=== PATIENT | male | born 1985 | race Caucasian/White ===

== ENCOUNTER 2021-08-14 21:46 | Inpatient (IN) | payer BC, SELFPAY ==
[2021-08-14 22:06] VITALS: BP 134/84; PULSE 78; RESP 16; TEMP 36.7; O2SAT 98; BMI 31.4
[2021-08-14 22:55] VITALS: RESP 18; O2SAT 98
--- NOTE | 2021-08-14 22:56 | CRLHL7_ITS ---
For Patients: As a result of the Century Cures Act, medical imaging exams and procedure reports are released immediately into your electronic medical record. You may view this report before your referring provider. If you have questions, please contact your health care provider. INDICATION: Severe rectal pelvic pain and swelling TECHNIQUE: CT pelvis with i.v. contrast. Coronal and sagittal reformats were obtained. CONTRAST: 100 mL Omnipaque 350 COMPARISON: None FINDINGS: Bone: No acute fractures or aggressive bone lesions are identified. There is a bone present in right sacral ala that measures 7 mm. Joint: The hip joint is unremarkable. No significant hip effusion is seen. The visualized sacroiliac joints are unremarkable in appearance. The pubic symphysis is normal in appearance. Soft tissue: There is a fluid collection measuring 2 x 1 x 2.8 cm posterior to the anal canal that likely represents a perianal abscess. IMPRESSION: 1. There is a fluid collection measuring 2 x 1 x 2.8 cm posterior to the anal canal that likely represents a perianal abscess. Dictated by Heri Gross MD @ 08/14/2021 11:49:58 PM Please note that all CT scans at this facility use dose modulation, iterative reconstruction, and/or weight-based dosing when appropriate to reduce radiation dose to as low as reasonably achievable. Dictated by: Heri Gross MD @ 08/14/2021 23:50:03 (Electronically Signed)
[2021-08-14 23:00] VITALS: BP 118/68; PULSE 70; RESP 16; TEMP 36.7; O2SAT 98
[2021-08-14] MEDS: 0.9 % SODIUM CHLORIDE 1000 ml 1,000 ML IV (23:00)
[2021-08-14] MEDS: HYDROmorphone 0.5 mg/0.5 ml inj 1.5 MG IVP (23:15)
[2021-08-14] MEDS: KETOROLAC 15 MG/ML inj IVP (23:19)
[2021-08-14 23:35] LABS: Basophils Percent Auto 0.2 % (0.0-3.0); Eosinophils Percent Auto 1.1 % (0.0-7.0); Hemoglobin* 15.5 gm/dL (13.5-17.5); Immature Granulocytes Abs Auto 0.07 K/uL (0.00-0.30); Lymphocytes Percent Auto 26.4 % (20-44); Mean Corpuscular HGB Conc 35 gm/dL (32-36); Mean Corpuscular Hemoglobin 30 pg (26-34); Mean Corpuscular Volume 85 fL (80-100); Monocytes Percent Auto 8.1 % (0.0-11.0); Neutrophils Percent Auto 63.6 % (42.0-72.0); Platelet Count* 345 K/uL (140-440); RDW Coefficient of Variation % 11.2 % (11.5-15.5)
[2021-08-14 23:41] LABS: Chloride* 104 mmol/L (96-114)
[2021-08-14 23:42] LABS: Potassium* 3.6 mmol/L (3.6-5.1); Sodium* 137 mmol/L (135-149)
[2021-08-14 23:44] LABS: Creatinine* 0.7 mg/dL (0.5-1.5); Est. Creatinine Clearance* 152.39; Estimated Glomerular Filt Rate 120.95
[2021-08-14 23:45] LABS: Blood Urea Nitrogen* 8 mg/dL (5-24); Carbon Dioxide* 25 mmol/L (20-32); Glucose* 111 mg/dL (60-115)
[2021-08-14 23:48] LABS: C Reactive Protein* 1.9 mg/dL (0.5-1.0)
[2021-08-14 23:48] LABS: Slide Review Reflex No
[2021-08-15] VITALS (27 sets, daily range): BP systolic 82–128; BP diastolic 60–79; PULSE 63–85; RESP 16–20; TEMP 36.3–37; O2SAT 94–98; BMI 31.7
--- NOTE | 2021-08-15 00:26 | ED_ITS ---
HPI - Abdominal Pain General Chief Complaint: Unspecified Complaint, Adult Stated Complaint: Pain in butt Covid+ since 08/02/21 Time Seen by Provider: 08/14/21 22:05 History of Present Illness HPI narrative: 36-year-old man presenting to the emergency department with concern of 1 week i ncreasing rectal area pain. Seems to be radiating now up into tailbone area. He is noted lump in the perianal area he says. Was seen earlier today in Urgent Care and initiated on clindamycin apparently for presumed rectal or perirectal abscess. It is unclear to me what was noted on exam. He denies particular pain with bowel movement but after the having bowel movement with muscular flexing in the area causes severe pain. He does not have dysuria but again at the end as he contracts muscles then he begins to have pain. He feels a sense of extreme pressure in the constant pushing or needs to have a bowel movement as well. He is not constipated he says. Complicated by a complex regional pain syndrome taking 10-20 mg of oxycodone every 4-6 hours. This however affects his left upper chest Area. He has not had any fever. No described rectal drainage or hematochezia. Extremely uncomfortable to sit PAST HISTORY:? Includes is complex regional pain syndrome, migraines, GERD, hypertriglyceridemia, some chest wall pain. ? FAMILY HISTORY:? Migraines, pancreatic cancer in grandmother. ? SOCIAL HISTORY:? He is a former smoker Though noted with triage update smoking again?? Related Data Home Medications Medication Instructions Recorded Confirmed oxycodone 10 mg tablet 10 mg PO BID PRN 08/14/21 08/14/21 pantoprazole 40 mg tablet,delayed 40 mg PO QDAY 08/14/21 08/14/21 release Previous Rx's Medication Instructions Recorded clindamycin HCl 300 mg capsule 300 mg PO TID 10 Days #30 cap 08/14/21 Allergies Allergy/AdvReac Type Severity Reaction Status Date / Time hydromorphone [From Dilaudid] Allergy Intermediate Hives Verified 08/15/21 01:56 Review of Systems Status of ROS Reports: 6 or more systems reviewed and unremarkable except as noted in History and below [facility] Medical History GERD (gastroesophageal reflux disease) Pain Surgical History No significant past surgical history Social History Highest level of school completed/degree received: Associate degree: occupational, technical, vocational program Smoking Status: Current every day smoker What tobacco products do you use: cigarettes Years smoked: 15 Do you use any of these nicotine containing products: None Second hand tobacco smoke exposure: Yes How often do you have a drink containing alcohol: never How often do you have six or more drinks on one occasion: Never AUDIT-C Alcohol total score: 0 Non-prescribed substance use: denies use Caffeine: Yes (2 Sodas Daily) service: No Exam Narrative: Exam Narrative: Mr. Monsalve is pleasant. Breathing easily. Clearly uncomfortable though. 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 Skin is warm and dry. Extremities are Without edema. Well perfused peripherally. lungs again breathing easily. Appear to be clear. CV RRR oropharynx unremarkable, moist. Abdomen is soft and nontender. Perineal/anal exam he is rather reticent to have this exam. I do not see any inflammatory changes around the anus. Insertion of finger gently however does result in a good deal of pain. Only able to place finger in anus about half an inch and I feel I need to abort this Due to tension and discomfort. Feels particularly full in 5 o'clock position. but a can say I appreciate any defect otherwise. Const: Vital Signs, click to edit/add: Vital Signs - 24 hr 08/14/21 22:06 08/14/21 22:55 08/14/21 23:00 Temperature 98.0 F 98.0 F Pulse Rate [Left P ulse Oximeter] 78 70 Respiratory Rate 16 16 Respiratory Rate [ Rectum] 18 Blood Pressure [Ri ght Upper Arm] 134/84 118/68 Pulse Oximetry 98 98 08/15/21 01:20 Temperature 98.0 F Pulse Rate [Left P ulse Oximeter] 78 Respiratory Rate 16 Respiratory Rate [ Rectum] Blood Pressure [Ri ght Upper Arm] 124/70 Pulse Oximetry 98 Documenting provider has reviewed patient's vital signs: yes Course Course Hospital Course: IV is initiated received a L normal saline. Labs pending. did require dosing of Dilaudid for pain management. Given 1.5 mg IV ultimately x2. Vital Signs Vital signs: Initial Vital Signs Temperature 98.0 F 08/14/21 22:06 Temperature Source Temporal Artery Scan 08/14/21 22:06 Pulse Rate 78 08/14/21 22:06 Respiratory Rate 16 08/14/21 22:06 Blood Pressure 134/84 08/14/21 22:06 Blood Pressure Mean 100 08/14/21 22:06 Blood Pressure Position Sitting 08/14/21 22:06 Pulse Oximetry 98 08/14/21 22:06 Oxygen Delivery Method 08/14/21 22:06 Vital Signs Temperature 98.0 F 08/14/21 22:06 Pulse Rate 78 08/14/21 22:06 Respiratory Rate 16 08/14/21 22:06 Blood Pressure 134/84 08/14/21 22:06 Pulse Oximetry 98 08/14/21 22:06 Temperature 97.7 F 08/15/21 02:47 Pulse Rate 71 08/15/21 02:47 Respiratory Rate 16 08/15/21 03:35 Blood Pressure 110/76 08/15/21 02:47 Pulse Oximetry 97 08/15/21 03:35 MDM - Abdominal Pain MDM Narrative Medical decision making narrative: Given his degree of pain, location with suspected perirectal/ Perianal abscess. Pelvic CT was ordered confirming this with maximal size measured by Radiology at nearly 3 cm. I did review these images myself. 1. There is a fluid collection measuring 2 x 1 x 2.8 cm posterior to the anal canal that likely represents a perianal abscess. white count was little bit elevated at 12.3 CRP of 1.9 creatinine normal at 0.[address] I did call to our general surgeon Dr. Schilling who is accepting into schedule at some point tomorrow for surgical care. Initiated on ciprofloxacin and Flagyl. Admitted to on-call with able Dr. Blanc. Medical Records Attestation: I reviewed the patient's medical records. Lab Data Attestation: I reviewed the patient's lab results. Labs: Lab Results 08/14/21 08/14/21 08/14/21 Range/Units 22:56 23:10 Unknown WBC 12.30 H (4.50-11.00) K/uL RBC 5.20 (4.30-5.90) m/uL Hgb 15.5 (13.5-17.5) gm/dL Hct 44.0 (37.0-53.0) % MCV 85 (80-100) fL MCH 30 (26-34) pg MCHC 35 (32-36) gm/dL RDW Coeff of Vikas 11.2 L (11.5-15.5) % Plt Count 345 (140-440) K/uL Neut % (Auto) 63.6 (42.0-72.0) % Lymph % (Auto) 26.4 (20-44) % Woodward % (Auto) 8.1 (0.0-11.0) % Eos % (Auto) 1.1 (0.0-7.0) % Baso % (Auto) 0.2 (0.0-3.0) % Neut # (Auto) 7.80 H (1.7-7.0) K/uL Lymph # (Auto) 3.20 H (0.90-2.90) K/uL Woodward # (Auto) 1.00 H (0.00-0.90) K/UL Eos # (Auto) 0.10 (0.00-0.50) K/uL Baso # (Auto) 0.00 (0.00-0.30) K/uL Abs Immat Gran (auto) 0.07 (0.00-0.30) K/uL Sodium 137 (135-149) mmol/L Potassium 3.6 (3.6-5.1) mmol/L Chloride 104 (96-114) mmol/L Carbon Dioxide 25 (20-32) mmol/L BUN 8 (5-24) mg/dL Creatinine 0.7 (0.5-1.5) mg/dL Estimated Creat Clear 152.39 Glucose 111 (60-115) mg/dL Calcium 9.0 (8.4-10.6) mg/dL C-Reactive Protein 1.9 H (0.5-1.0) mg/dL SARS-CoV-2 (PCR) Cancelled SARS-CoV-2 Ag (Rapid) Negative Discharge Plan Discharge Clinical Impression: Abscess, perirectal Patient Disposition: Admitted As Inpatient Condition: Stable
[2021-08-15 00:31] LABS: SARS Antigen* Negative
[2021-08-15] MEDS: HYDROmorphone 0.5 mg/0.5 ml inj 1.5 MG IVP (01:26)
[2021-08-15] MEDS: metroNIDAZOLE 500 MG/100 ML PIGGYBACK IVPB (01:36)
[2021-08-15] MEDS: diphenhydrAMINE 50 MG/ML inj 25 MG IVP (01:36)
[2021-08-15] MEDS: CIPROFLOXACIN 400 MG/200 ML inj IVPB ×2 (02:36→15:33)
--- NOTE | 2021-08-15 02:41 | W.PM.CROSSCO ---
Subjective Subjective Time Seen by Provider: 02:41 Date Seen: 08/15/21 Principal diagnosis: CC: Perirectal Abscess Interval history: Pt is a 36 year old gentleman who presents with rectal pain of 1 week duration who was diagnosed with perirectal abscess in the ED via CT after being seen earlier in the day in Urgent Care. Abscess is 3 cm in diameter. Pt admitted for surgery and started on Cipro plus Flagyl. Pt has chronic pain and is on chronic narcotics PMH: Chronic Pain and Gerd Meds: Reviewed SH: Allergies none ROS otherwise unremarkable VSS Exam non focal remotely A: Perirectal Abscess in the setting of chronic pain P: Admit, Keep NPO, pt had mild reaction to dilaudid. Will treat with MS and Ativan. Surgery aware of pt. Will continue Cipro and Flagyl.
[2021-08-15] MEDS: MORPHINE 4 MG/ML INJ IVP ×5 (03:18→07:52)
[2021-08-15] MEDS: ACETAMINOPHEN 325 MG TABLET PO (03:19)
[2021-08-15] MEDS: LORazepam 2 MG/ML inj IVP ×2 (03:19→08:12)
[2021-08-15] MEDS: SODIUM CHLORIDE 0.9 % (FLUSH) 10 ML SYRINGE 5 ML IVF ×5 (04:24→08:13)
--- NOTE | 2021-08-15 04:35 | PC.NURSE ---
Addendum entered by Daron Sabillon RN 08/15/21 06:18: 4mg MS repeated for pain 8/10. Pt was NPO on arrival sips w/meds. 277 IVF in and x1 void. Original Note: Admitted to room 262 at 0215. VSS RA. Pain 8/10 gave Ativan, Tylenol 975mg and Morphine improved to 6/10 and Morphine repeated and then plan is to let pt sleep. Cipro given on arrival. Pt indicated pain to gluteal cleft and it is a little pink. NPO. Bowel tones hypoactive. Occ dry cough. Surgical packet completed as far as it could be considering everything.
--- NOTE | 2021-08-15 09:27 | P.IMHP_ITS ---
Hospitalist- H&P: HPI History of Present Illness Date Seen: 08/31/21 Chief complaint: Pain in butt Covid+ since 08/02/21 Narrative: ADMISSION HISTORY AND PHYSICAL - HOSPITALIST Chief Complaint: Rectal pressure and pain HPI: This is a 36-year-old with history of hemorrhoids, complex regional pain syndrome the left upper chest and arm, chronic opioid dependent who presents with acute rectal pain and pressure. Please see the ER evaluation for more information. PAST MEDICAL HISTORY: Complex regional pain, left shoulder COVID is 08/02. Mild disease. Antigen last night, negative (day 13 of disease) Generalized anxiety Right shoulder impingement Tobacco dependence Migraine headaches MEDICATIONS: Albuterol p.r.n. Oxycodone 10-20 mg q.4 hours Protonix 40 mg daily ALLERGIES: No true allergies. Last night a dose of hydromorphone gave him a rash on his arms. He has several drugs that cause him some intolerance is: Celebrex, clonazepam, codeine, Cymbalta, fentanyl, gabapentin, lactose, lorazepam, Savella, care if a SURGICAL HISTORY: Multiple left and right shoulder arthroscopies. FAMILY HISTORY: Reviewed in EMR HABITS: Daily smoker, less than 1 pack of cigarettes daily. Times 23 years Minimal alcohol No recreational drug use SOCIAL HISTORY: Works and IT INVESTIGATIONS: LABS/MICRO/ECG/IMAGING Blood pressure 110/76, pulse 71. Afebrile. 97% on room air. CBC reflects a mild leukocytosis of 12.3. Hemoglobin 15.5, normal platelets. Normal BMP. CRP 1.9. SARS-CoV-[address] IMPRESSION: 1. There is a fluid collection measuring 2 x 1 x 2.8 cm posterior to the anal canal that likely represents a perianal abscess. REVIEW OF SYSTEMS: 12-point ROS completed with patient and negative unless otherwise stated in HPI or below. PHYSICAL EXAM: CODE STATUS: FULL CONSTITUTIONAL: tired appearing. coherent. VITAL SIGNS: see record. HEENT: Normocephalic, atraumatic. PERRL, EOMI, conjunctivae pink, no scleral icterus. Ears and nose externally normal. Pharynx normal. NECK: No JVD. No carotid bruit, no thyromegaly, no adenopathy. CHEST: Clear to auscultation bilaterally HEART: S1 and S2 normal. No harsh murmurs. Edema MUSCULOSKELETAL: No gross joint deformity or swelling. Anus/Rectum: no exam was completed. NEURO: Cranial nerves intact. Grossly intact. No asymmetric findings. SKIN: No rashes, petechiae, concerning changes PSYCHIATRIC: Euthymic. ADMIT DVT: ambulation GI: PPI and PO intake Time spent: 50 minutes examining patient, conferring with family and patient, care staff, developing care plan [facility] Medical History (Updated 08/15/21 @ 11:34 by Jaci Grace MD) Chronic, continuous use of opioids Complex regional pain syndrome i of left upper limb GERD (gastroesophageal reflux disease) Pain Tobacco dependence Surgical History (Updated 08/15/21 @ 09:42 by Babs Schilling MD) No significant past surgical history S/P shoulder surgery Family History (Updated 08/26/21 @ 08:19 by Diana Roque) Mother Crohn's disease Brother Migraine Family/Other Pancreatic cancer Social History (Updated 08/15/21 @ 09:49 by Babs Schilling MD) Narrative: The patient smokes 1 pack of cigarettes per day. He does not drink. He works in IT. Highest level of school completed/degree received: Associate degree: occupational, technical, vocational program Smoking Status: Current every day smoker What tobacco products do you use: cigarettes Years smoked: 15 Do you use any of these nicotine containing products: None Second hand tobacco smoke exposure: Yes How often do you have a drink containing alcohol: never How often do you have six or more drinks on one occasion: Never AUDIT-C Alcohol total score: 0 Non-prescribed substance use: denies use Caffeine: Yes (2 Sodas Daily) service: No Meds Home Medications and Allergies Home Medications Medication Instructions Recorded Confirmed Type oxycodone 10 mg tablet 10 - 20 mg PO Q4H PRN 08/14/21 08/15/21 History pantoprazole 40 mg tablet,delayed 40 mg PO QDAY 08/14/21 08/15/21 History release Allergies Allergy/AdvReac Type Severity Reaction Status Date / Time hydromorphone [From Dilaudid] Allergy Intermediate Hives Verified 08/15/21 01:56 lactase Allergy Intermediate Verified 08/15/21 07:55 milnacipran Allergy Intermediate Verified 08/15/21 07:55 clonazepam Allergy Unknown Verified 08/15/21 07:55 gabapentin Allergy Unknown Verified 08/15/21 07:55 lorazepam Allergy Unknown Verified 08/15/21 07:55 duloxetine AdvReac Intermediate Verified 08/15/21 07:55 fentanyl AdvReac Intermediate Verified 08/15/21 07:55 celecoxib AdvReac Mild Verified 08/15/21 09:54 codeine AdvReac Unknown Verified 08/15/21 07:55 Exam Const: Vital Signs, click to edit/add: Vital Signs - 24 hr 08/14/21 22:06 08/14/21 22:55 08/14/21 23:00 Temperature 98.0 F 98.0 F Pulse Rate [Left B rachial] Pulse Rate [Left P ulse Oximeter] 78 70 Respiratory Rate 16 16 Respiratory Rate [ Rectum] 18 Blood Pressure [Le ft Arm] Blood Pressure [Ri ght Upper Arm] 134/84 118/68 Pulse Oximetry 98 98 08/15/21 01:20 08/15/21 02:00 08/15/21 02:45 Temperature 98.0 F 98.0 F 97.7 F Pulse Rate [Left B rachial] 71 Pulse Rate [Left P ulse Oximeter] 78 85 Respiratory Rate 16 16 16 Respiratory Rate [ Rectum] Blood Pressure [Le ft Arm] 110/76 Blood Pressure [Ri ght Upper Arm] 124/70 128/69 Pulse Oximetry 98 98 97 08/15/21 02:47 08/15/21 03:35 Temperature 97.7 F Pulse Rate [Left B rachial] 71 Pulse Rate [Left P ulse Oximeter] Respiratory Rate 16 16 Respiratory Rate [ Rectum] Blood Pressure [Le ft Arm] 110/76 Blood Pressure [Ri ght Upper Arm] Pulse Oximetry 97 Hospitalist - H&P: Result Labs Labs: Short CBC 08/14/21 Range/Units Unknown WBC 12.30 H (4.50-11.00) K/uL Hgb 15.5 (13.5-17.5) gm/dL Hct 44.0 (37.0-53.0) % Plt Count 345 (140-440) K/uL BMP 08/14/21 23:10 Sodium 137 Potassium 3.6 Chloride 104 Carbon Dioxide 25 BUN 8 Creatinine 0.7 Glucose 111 Calcium 9.0 Assessment and Plan Assessment and plan (1) Abscess, perirectal: Status: Acute Assessment and Plan: Is incompletely my evaluation this morning at about 9:15 a.m., general surgery had already been in any was promptly being brought to the OR. No rectal exam was done, not needed as general surgery had already evaluated both images and clinical exam. We will be happy to follow through to discharge for this patient who is expected to have a benign postoperative course. (2) Complex regional pain syndrome i of left upper limb: Status: Acute Assessment and Plan: Adjust IV pain control per his chronic use. As he is tolerating p.o. transition him back to his oxycodone regimen. (3) Chronic, continuous use of opioids: Status: Acute Assessment and Plan: As above. (4) Tobacco dependence: Status: Acute Assessment and Plan: We can offer nicotine replacement as needed
--- NOTE | 2021-08-15 09:37 | PM.GSCN ---
History of Present Illness Consult details Consult date: 08/15/21 Narrative: The patient is a 36-year-old male who has had 1 week of perianal pain. He states initially started as mild pain but it got worse 2 days ago. He states that the pain is constant and nothing makes it better or worse. He has not had any fevers. He states that he has bowel movements daily and that they are normal. He states that he does not have issues with constipation. He went into urgent care and they thought that he was possibly developing an abscess and he was given antibiotics. He was supposed to have an ultrasound, however his pain became acutely worse and he presented to the emergency department where a CT was performed showing a small perianal abscess. He has never had anything like this before. Review of Systems Status of ROS: Reports: 10 or more systems reviewed and unremarkable except as noted in History and below [facility] Medical History (Updated 08/15/21 @ 09:42 by Babs Schilling MD) Chronic, continuous use of opioids Complex regional pain syndrome i of left upper limb GERD (gastroesophageal reflux disease) Pain Surgical History (Updated 08/15/21 @ 09:42 by Babs Schilling MD) No significant past surgical history S/P shoulder surgery Social History (Updated 08/15/21 @ 09:49 by Babs Schilling MD) Narrative: The patient smokes 1 pack of cigarettes per day. He does not drink. He works in IT. Highest level of school completed/degree received: Associate degree: occupational, technical, vocational program Smoking Status: Current every day smoker What tobacco products do you use: cigarettes Years smoked: 15 Do you use any of these nicotine containing products: None Second hand tobacco smoke exposure: Yes How often do you have a drink containing alcohol: never How often do you have six or more drinks on one occasion: Never AUDIT-C Alcohol total score: 0 Non-prescribed substance use: denies use Caffeine: Yes (2 Sodas Daily) service: No Meds Home Medications and Allergies Home Medications Medication Instructions Recorded Confirmed Type oxycodone 10 mg tablet 10 - 20 mg PO Q4H PRN 08/14/21 08/15/21 History pantoprazole 40 mg tablet,delayed 40 mg PO QDAY 08/14/21 08/15/21 History release Allergies Allergy/AdvReac Type Severity Reaction Status Date / Time hydromorphone [From Dilaudid] Allergy Intermediate Hives Verified 08/15/21 01:56 lactase Allergy Intermediate Verified 08/15/21 07:55 milnacipran Allergy Intermediate Verified 08/15/21 07:55 clonazepam Allergy Unknown Verified 08/15/21 07:55 gabapentin Allergy Unknown Verified 08/15/21 07:55 lorazepam Allergy Unknown Verified 08/15/21 07:55 duloxetine AdvReac Intermediate Verified 08/15/21 07:55 fentanyl AdvReac Intermediate Verified 08/15/21 07:55 celecoxib AdvReac Mild Verified 08/15/21 09:54 codeine AdvReac Unknown Verified 08/15/21 07:55 Exam Narrative: Exam Narrative: General appearance: Alert, cooperative, and in Mild distress Eyes: PERRLA, eye lids clear, and sclera white Pulmonary: Breathing nonlabored on room air Cardiovascular Heart: Regular rate Gastrointestinal rectal: On external exam there is no redness. He is tender somewhat to the left of midline in the perianal area. There is no drainage from the anal canal. Digital exam deferred secondary to pain Musculoskeletal: Extremities: Upper: Both upper extremities have normal joint range of motion and intact strength. Lower: Both lower extremities have normal joint range of motion and intact strength. Skin: Normal skin color, texture, and turgor. No rashes or lesions. Neurologic: No focal deficits Psychiatric: Alert, oriented, cooperative, normal affect. Const: Vital Signs, click to edit/add: Vital Signs - 24 hr 08/14/21 22:06 08/14/21 22:55 08/14/21 23:00 Temperature 98.0 F 98.0 F Pulse Rate [Left B rachial] Pulse Rate [Left P ulse Oximeter] 78 70 Respiratory Rate 16 16 Respiratory Rate [ Rectum] 18 Blood Pressure [Le ft Arm] Blood Pressure [Ri ght Upper Arm] 134/84 118/68 Pulse Oximetry 98 98 08/15/21 01:20 08/15/21 02:00 08/15/21 02:45 Temperature 98.0 F 98.0 F 97.7 F Pulse Rate [Left B rachial] 71 Pulse Rate [Left P ulse Oximeter] 78 85 Respiratory Rate 16 16 16 Respiratory Rate [ Rectum] Blood Pressure [Le ft Arm] 110/76 Blood Pressure [Ri ght Upper Arm] 124/70 128/69 Pulse Oximetry 98 98 97 08/15/21 02:47 08/15/21 03:35 Temperature 97.7 F Pulse Rate [Left B rachial] 71 Pulse Rate [Left P ulse Oximeter] Respiratory Rate 16 16 Respiratory Rate [ Rectum] Blood Pressure [Le ft Arm] 110/76 Blood Pressure [Ri ght Upper Arm] Pulse Oximetry 97 Results Labs Labs: Abnormal lab results 08/14/21 08/14/21 Range/Units 23:10 Unknown WBC 12.30 H (4.50-11.00) K/uL RDW Coeff of Vikas 11.2 L (11.5-15.5) % Neut # (Auto) 7.80 H (1.7-7.0) K/uL Lymph # (Auto) 3.20 H (0.90-2.90) K/uL Gentry # (Auto) 1.00 H (0.00-0.90) K/UL C-Reactive Protein 1.9 H (0.5-1.0) mg/dL Diabetes panel 08/14/21 Range/Units 23:10 Sodium 137 (135-149) mmol/L Potassium 3.6 (3.6-5.1) mmol/L Chloride 104 (96-114) mmol/L Carbon Dioxide 25 (20-32) mmol/L BUN 8 (5-24) mg/dL Creatinine 0.7 (0.5-1.5) mg/dL Glucose 111 (60-115) mg/dL Calcium 9.0 (8.4-10.6) mg/dL Calcium panel 08/14/21 Range/Units 23:10 Calcium 9.0 (8.4-10.6) mg/dL Pituitary panel 08/14/21 Range/Units 23:10 Sodium 137 (135-149) mmol/L Potassium 3.6 (3.6-5.1) mmol/L Chloride 104 (96-114) mmol/L Carbon Dioxide 25 (20-32) mmol/L BUN 8 (5-24) mg/dL Creatinine 0.7 (0.5-1.5) mg/dL Glucose 111 (60-115) mg/dL Calcium 9.0 (8.4-10.6) mg/dL Adrenal panel 08/14/21 Range/Units 23:10 Sodium 137 (135-149) mmol/L Potassium 3.6 (3.6-5.1) mmol/L Chloride 104 (96-114) mmol/L Carbon Dioxide 25 (20-32) mmol/L BUN 8 (5-24) mg/dL Creatinine 0.7 (0.5-1.5) mg/dL Glucose 111 (60-115) mg/dL Calcium 9.0 (8.4-10.6) mg/dL All other labs normal. Imaging Additional studies: [place] [address] Diagnostic Imaging Report Patient: Ángel Monsalve MMR#: [id number]: [id number]:[id number]: EDService Date: 08/14/21Attending Dr: Ordering Physician: Pravin Leary MD Date of Service: 08/14/21 Procedure(s): CT pelvis w con Accession Number(s): [id number] cc: Provider,Not a Local ; Pravin Leary MD~ For Patients: As a result of the Cures Act, medical imaging exams and procedure reports are released immediately into your electronic medical record. You may view this report before your referring provider. If you have questions, please contact your health care provider. INDICATION: Severe rectal pelvic pain and swelling TECHNIQUE: CT pelvis with i.v. contrast. Coronal and sagittal reformats were obtained. CONTRAST: 100 mL Omnipaque 350 COMPARISON: None FINDINGS: Bone: No acute fractures or aggressive bone lesions are identified. There is a bone present in right sacral ala that measures 7 mm. Joint: The hip joint is unremarkable. No significant hip effusion is seen. The visualized sacroiliac joints are unremarkable in appearance. The pubic symphysis is normal in appearance. Soft tissue: There is a fluid collection measuring 2 x 1 x 2.8 cm posterior to the anal canal that likely represents a perianal abscess. IMPRESSION: 1. There is a fluid collection measuring 2 x 1 x 2.8 cm posterior to the anal canal that likely represents a perianal abscess. Dictated by Heri Gross MD @ 08/14/2021 11:49:58 PM Please note that all CT scans at this facility use dose modulation, iterative reconstruction, and/or weight-based dosing when appropriate to reduce radiation dose to as low as reasonably achievable. Dictated by: Heri Gross MD @ 08/14/2021 23:50:03 (Electronically Signed) Assessment and Plan Assessment and plan (1) Abscess, perirectal: Status: Acute (2) Complex regional pain syndrome i of left upper limb: Status: Acute (3) Chronic, continuous use of opioids: Status: Acute Plan The patient is a 36-year-old male with a perianal abscess. I suspect this to be intersphincteric given the presentation. However, we discussed all of the options including internal drainage, external drainage and seton placement depending on what is found during exam under anesthesia. We discussed the reasoning for the seton placement if necessary which is to avoid in the injury to the sphincter and preserve continence while allowing the abscess to adequately drain and prevent recurrence. He understands this may mean additional procedures are necessary. He will likely be able to discharge home today, Provided his pain is controlled given his history of opioid dependence for chronic regional pain syndrome. He is agreeable to proceed and we will plan on surgery as soon as the OR is available.
[2021-08-15] MEDS: LACTATED RINGERS 1000 ML 1,000 ML 100 ML IV (09:45)
[2021-08-15] MEDS: CEFAZOLIN 2 GM in 0.9 % SODIUM CHLORIDE Mini-bag 100 ML IVPB (10:15)
[2021-08-15] MEDS: KETOROLAC 15 MG/ML inj IVP ×2 (10:21→15:45)
--- NOTE | 2021-08-15 10:53 | PM.GSPRC ---
Operative Note Date of procedure: 08/15/21 Procedure Description: After discussing the risks and benefits of the procedure, the patient signed informed consent.? The operative site was marked and the patient was brought to the operating room. Anesthesia then performed a spinal anesthetic. Please see their note for details. The patient was then placed in the prone debi-knife position with care to pad his pressure points. He was then given sedation by anesthesia.?? The operative site was then prepped and draped in the usual sterile fashion.? A time-out was then performed. The external aspect of the anus was palpated. I was able to feel a firm area which appeared posterior to the sphincter complex. This was essentially in the midline, slightly to the left. I then palpated inside the anus and could feel a firmness, however again the bulk of the abscess appeared to be external to the sphincter complex, however it was close. using a Chaudhari bivalve I examined the inside of the anal canal. There were no internal openings. I used a 19 gauge needle to aspirate to confirm the purulence in the area of the palpable mass. I then made a small stab incision posterior to the palpable sphincter complex and, using a mosquito, I poked into the cavity. Purulence returned. I opened the skin superficially and away from the anus and sphincter complex to allow better drainage. Again, I felt as though I was outside of the external sphincter muscle, however to avoid injuring any muscle, I did not open the wound widely as I might normally. i eplored the cavity with a probe and did not find any internal openings. The wound was irrigated and packed. ? The patient was then woken and transported to the recovery area in stable condition. ? The patient tolerated the procedure well. Findings: Small posterior abscess. Anesthesia: spinal ( With mac) Surgeon: Babs Schilling MD Estimated blood loss (mL): 2 Condition: stable Disposition: PACU
--- NOTE | 2021-08-15 10:53 | W.ANESCHARGE ---
Anesthesia Charges Start Date/Time Anesthesia Start Date: 08/15/21 Anesthesia Start Time: 09:42 Stop Date/Time Anesthesia Stop Date: 08/15/21 Anesthesia Stop Time: 10:46 Summary Emergency: No
--- NOTE | 2021-08-15 11:48 | W.ANESCHARGE ---
Anesthesia Charges Start Date/Time Anesthesia Start Date: 08/15/21 Anesthesia Start Time: 09:42 Stop Date/Time Anesthesia Stop Date: 08/15/21 Anesthesia Stop Time: 10:46 Summary Emergency: No
--- NOTE | 2021-08-15 15:54 | PC.NURSE ---
Pt had excruciating pain at initial assessment, tearful, up wandering in his room. Pain 8 of 10 from site of perirectal abcess, pt received 8 mg IV morphine and 1mg of ativan w/o significant relief. Dr. Schilling at bedside to explain surgical procedure to pt and his Michaela. Permit signed by Dr. Schilling and anesthesia self pay representative. Pt taken to OR @0940 am before primary RN able to repeat MSO4 and hang IV Flagyl dose. Pre-op check list partially completed by night monitor RN. Pt returned from PACU to room 262 in his hospital bed @11:30 am, initial assessment from PACU completed per primary RN. Drsg gluteal cleft CDI. Please see post op frequent VS. Pt slept soundly & snored after rtn from surgery. Pt up to void & to recliner @ 1430. CL lunch tray ordered. Report to Nita RN for evening shift.
--- NOTE | 2021-08-15 17:11 | PC.NURSE ---
discharge: pt left at 1705. discharge paperwork reviewed and signed. all questions answered. Dr. Schilling and Dr. Romero called prior to d/c to confirm orders. Both stated pt is ready for d/c. IV removed, catheter intact.
== END 2021-08-15 17:05 | disposition home or self-care (01) | DRG 254 ==
LOC: ED 08-15 01:21 → MEDSURG 08-15 08:46
PROVIDERS: Surgery; Admitting Provider Family Medicine; Emergency Provider Family Medicine; Visit Provider Family Medicine
PROC: 0D9Q3ZX Drainage of Anus, Percutaneous Approach, Diagnostic (ICD-10-PCS; CPT 46040; principal; 2021-08-15 09:30)
DX: K61.2 Anorectal abscess (principal); K62.89 Other specified diseases of anus and rectum; K21.9 Gastro-esophageal reflux disease without esophagitis; F17.210 Nicotine dependence, cigarettes, uncomplicated; G89.4 Chronic pain syndrome; F11.20 Opioid dependence, uncomplicated; M25.512 Pain in left shoulder; F41.1 Generalized anxiety disorder; K64.9 Unspecified hemorrhoids
CPT/HCPCS: 00902; 36415; 72193; 80048; 85025; 86140; 87040; 87426; 87635; 99283; 99284; A9270; J0690; J0744; J1100; J1170; J1200; J1885; J2060; J2250; J2270; J2400; J2405; J2704; J7030; J7120; Q9967; S0030